=== PATIENT | female | born 1945 | race Caucasian/White ===

== ENCOUNTER 2016-08-28 18:51 | Emergency (ER) | payer MEDICARE, OTHER ==
[~2016-08-28] VITALS: Ht 163.8 cm; Wt 82.6 kg
[~2016-08-28 18:51] MED LIST: ATEN100T PO; CHLO1CAP PO; GLUC-12 PO; LISI10TA2 PO
[2016-08-28 19:00] VITALS: BP 151/94
--- NOTE | 2016-08-28 19:17 | ED.ADGEN ---
Past History Past Medical History: CAD, Cancer, Hypertension Past Surgical History: Other Alcohol Use: None Drug Use: None Adult General HPI HPI Patient is a 71-year-old female presents emergency department complaining of right wrist pain. Approximately 2 hours prior to arrival the patient did fall on an outstretched arm. She has had 160 mg of aspirin prior to arrival but no other intervention. She denies any other injuries. Review of Systems Review of Systems Constitutional: Denies fever or chills [] Eyes: Denies change in visual acuity, redness, or eye pain [] HENT: Denies nasal congestion or sore throat [] Respiratory: Denies cough or shortness of breath [] Cardiovascular: No additional information not addressed in HPI [] GI: Denies abdominal pain, nausea, vomiting, bloody stools or diarrhea [] : Denies dysuria or hematuria [] Musculoskeletal: Denies back pain or joint pain [] Integument: Denies rash or skin lesions [] Neurologic: Denies headache, focal weakness or sensory changes [] Endocrine: Denies polyuria or polydipsia [] Current Medications Current Medications Current Medications Medications (Trade) Dose Ordered Sig/[facility] Start Time Stop Time Status Last Admin Dose Admin Tramadol HCl (Ultram) 50 mg 1X ONCE 08/28/16 19:30 08/28/16 19:31 Allergies Allergies Allergies Coded Allergies Type Severity Reaction Last Updated Verified prochlorperazine Allergy Intermediate NAUSEA 07/01/15 Yes lisinopril Allergy Unknown 08/28/16 Yes morphine Adverse Reaction Mild ITCHING 07/01/15 Yes Physical Exam Physical Exam Constitutional: Well developed, well nourished, no acute distress, non-toxic appearance. [] HENT: Normocephalic, atraumatic, bilateral external ears normal, oropharynx moist, no oral exudates, nose normal. [] Eyes: PERRLA, EOMI, conjunctiva normal, no discharge. [] Neck: Normal range of motion, no tenderness, supple, no stridor. [] Cardiovascular:Heart rate regular rhythm, no murmur [] Lungs & Thorax: Bilateral breath sounds clear to auscultation [] Abdomen: Bowel sounds normal, soft, no tenderness, no masses, no pulsatile masses. [] Skin: Warm, dry, no erythema, no rash. [] Extremities: Right distal wrist is tender to palpation with obvious deformity, neurovascularly intact, no cyanosis, no clubbing, no edema. [] Neurologic: Alert and oriented X 3, normal motor function, normal sensory function, no focal deficits noted. [] Psychologic: Affect normal, judgement normal, mood normal. [] EKG EKG [] Radiology/Procedures Radiology/Procedures Right wrist x-ray interpreted by me demonstrates distal radius and ulna fracture with minimal displacement [] Course & Med Decision Making Course & Med Decision Making Pertinent Labs and Imaging studies reviewed. (See chart for details) Patient was placed in a sugar tong splint. She was neurovascularly intact following placement of this splint. She will follow-up with orthopedics in 72 hours return emergency department sooner she develops new or worsening symptoms. [] Final Impression Final Impression Distal radius fracture, distal ulnar fracture [] Problems: Dragon Disclaimer Dragon Disclaimer This electronic medical record was generated, in whole or in part, using a voice recognition dictation system. FABI SUNG MD Aug 28, 2016 19:17
[2016-08-28] MEDS ORDERED: TRAM-29 PO (19:24)
[2016-08-28] MEDS ORDERED: TRAMADOL 50 MG TABLET. PO ONE (19:30)
--- NOTE | 2016-08-29 08:34 | RAD ---
Right wrist, 3 views, 08/28/2016: History: Fall, pain There is a fracture of the distal radius. The major fracture fragments are not significantly displaced. There is a mildly displaced fracture of the styloid process of the distal ulna. The carpal bones are intact. Mild degenerative changes are evident at the wrist. IMPRESSION: Acute fractures of the distal radius and ulnar styloid.
== END 2016-08-28 20:34 | disposition home or self-care (01) ==
LOC: ER 18:54
DX: S52.511A Displaced fracture of right radial styloid process, initial encounter for closed fracture (principal); S52.611A Displaced fracture of right ulna styloid process, initial encounter for closed fracture; I25.10 Atherosclerotic heart disease of native coronary artery without angina pectoris; I10 Essential (primary) hypertension; W19.XXXA Unspecified fall, initial encounter; Y93.89 Activity, other specified; Y99.8 Other external cause status; Y92.89 Other specified places as the place of occurrence of the external cause
CPT/HCPCS: 29125; 73110; 99284-25

== ENCOUNTER → 2018-06-13 | Outpatient (CLI) | payer MEDICARE ==
[~2018-06-13] MED LIST changes: +TRAM-48 PO
[2018-06-13 12:35] LABS: CALCIUM 9.8 mg/dL (8.5-10.1); CREATININE 2.1 mg/dL (0.6-1.0)
[2018-06-13 12:37] LABS: POTASSIUM 2.6 mmol/L (3.5-5.1)
== END | disposition home or self-care (01) ==
LOC: LAB 11:59
PROVIDERS: ATTEND Nurse Practitioner
DX: I10 Essential (primary) hypertension (principal)
CPT/HCPCS: 36415; 80048

== ENCOUNTER → 2018-06-16 | Outpatient (CLI) | payer MEDICARE, OTHER ==
[2018-06-16 16:05] LABS: CREATININE 1.3 mg/dL (0.6-1.0); POTASSIUM 3.9 mmol/L (3.5-5.1)
== END | disposition home or self-care (01) ==
LOC: LAB 14:26
PROVIDERS: ATTEND Nurse Practitioner
DX: E87.6 Hypokalemia (principal)
CPT/HCPCS: 36415; 80048